=== PATIENT | female | born 1945 | race Caucasian/White ===

== ENCOUNTER 2016-12-25 01:57 | Inpatient (IN) | payer MEDICARE, MEDICAID ==
[~2016-12-25] VITALS: Ht 165.1 cm; Wt 52.9 kg
[2016-12-25] VITALS (16 sets, daily range): BP systolic 73–207; BP diastolic 36–87; PULSE 64–109; RESP 13–22; O2SAT 94–99
[~2016-12-25 01:57] MED LIST: CYAN1TAB42 PO; ESTR0.3T2 PO; FISH OIL PO; FLE10 PO; FOLI1TAB50 PO; FOLIC ACID PO; OMEP20TA86 PO; OXYC5TAB72 PO; RANI150T13 PO; TOPI200T14 PO; TRAZ150T72 PO; VITAMIN D PO; ZLP5T PO
--- NOTE | 2016-12-25 01:59 | ED.REPORT ---
HPI-General Illness Date of Service Dec 25, 2016 ED Provider: Dr. Zoran Tellez M.D. The patient is a 71 year old female not on anticoagulants with a medical history including macrocytic anemia and hypertension recently started on Cartia who presents to the ED via EMS after a syncopal episode just prior to arrival. The patient became dizzy and slid to the ground, then called EMS when she was unable to get back up. She currently reports generalized weakness, recent fluctuating blood pressures, and a red rash to her anterior chest onset a couple of days ago, after starting the Cartia. She denies chest pain, shortness of breath, cough, fever, nausea, vomiting, diaphoresis, abdominal pain, dysuria , diarrhea, constipation, head trauma, injury from the fall, or other symptoms. EMS found the patient with a BP of 70/48, a pulse of 71, a respiration rate of 20, and pulse ox of 95. The patient took an Ambien and used marijuana tonight, prior to her syncopal episode. Nursing Notes Stated Complaint: SYNCOPE Nursing Notes Reviewed: Yes Allergies: Coded Allergies: Penicillins (Verified Allergy, Unknown, HIVES, 12/25/16) Scheduled ([Folic Acid]) 1,600 MG PO DAILY ([Fish Oil]) PO DAILY ([Vitamin D]) PO DAILY Cyanocobalamin/Folic Acid (Vitamin L74-Hrepf Acid Tablet) 1 Each Tablet 1 EACH PO DAILY Estrogens, Conjugated (Premarin) 0.3 Mg Tablet 0.3 MG PO AM Mv,Ca,Min/Iron Fum/FA/Vit K (Multi For Her Tablet) 1 Each Tablet 1 EACH PO DAILY Omeprazole-Expunged Drug, Do Not Renew! (Omeprazole-Expunged Drug, Do Not Renew! ) 20 Mg Tablet.dr 20 MG PO BIDAC Topiramate-Expunged Drug, Do Not Renew! (Topiramate-Expunged Drug, Do Not Renew! ) 200 Mg Tablet 75 MG PO BID Trazodone-Expunged Drug, Do Not Renew! (Trazodone-Expunged Drug, Do Not Renew!) 150 Mg Tablet 75 MG PO HS Zolpidem-Expunged Drug, Do Not Renew! (Zolpidem-Expunged Drug, Do Not Renew!) 5 Mg Tab 5 MG PO HSPMR For Insomnia Scheduled PRN Cyclobenzaprine-Expunged Drug, Do Not Renew! (Flexeril-Expunged Drug, Do Not Renew!) 10 Mg Tablet 10 MG PO PRN PRN PRN Ranitidine HCl (Zantac) 150 Mg Tablet 150 MG PO PRN PRN PRN HEARTBURN oxyCODONE-Expunged, Do Not Renew! (oxyCODONE-Expunged, Do Not Renew!) 5 Mg Tablet 5 MG PO PRN PRN PRN General Time Seen by MD: 01:58 Chief Complaint Other (Syncope) Hx Obtained From: Patient Arrived By: Ambulance Sudden in Onset?: Yes Onset Occurred: Just prior to arrival Symptom Duration: Since onset Severity: Current: No pain currently Severity: Maximum: No pain Pertinent Negative: Relieved by nothing Recent Healthcare: No recent doctor visit Past Medical History Past Medical History 1. 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 B12 and folic acid supplements, which she takes on a daily basis. 2. Hypertension. 3. Chronic lower back pain. Past Surgical History "Lump removed from right thigh" Reports: Cholecystectomy, Hysterectomy Smoking History Unknown if Ever Smoker Social History Drug Use: THC Ambulatory Status Independent Review of Systems + Recent fluctuating blood pressure - Head trauma Full Review of Systems Constitutional: Reports: Weakness - generalized, Denies: Fever Respiratory: Denies: Shortness of breath Cardiovascular: Denies: Chest pain GI: Denies: Abdominal pain, Constipation, Diarrhea, Nausea, Vomiting Female: Denies: Dysuria Skin: Reports Rash (Red, anterior chest), Denies Diaphoresis Neurologic: Reports: Dizziness, Syncope Complete sys rev & neg: except as marked. Physical Exam Vital Signs Vital Signs Date Time Temp Pulse Resp B/P Pulse Ox O2 Delivery O2 Flow Rate FiO2 12/25/16 04:01 69 79/39 12/25/16 03:12 74 104/37 12/25/16 03:02 64 85/49 12/25/16 02:51 71 16 106/61 99 Room Air 12/25/16 02:23 72 13 73/36 99 Room Air 12/25/16 02:00 36.3 77 20 84/52 96 Room Air Initial VS: Reviewed Head / Eyes: Atraumatic, Normocephalic ENT: Conjunctiva normal, No scleral icterus Respiratory: Breath sounds normal, Clear to auscultation, No respiratory distress Abdomen / GI: Soft, Non-tender Extremities: No swelling, No tenderness Neurologic: Alert, Oriented, Nonfocal Psychiatric: Mood/affect normal, Behavior normal, Normal thought content General/Constitutional: Awake, Alert, No acute distress, Well appearing Thin Neck: Supple, Full range of motion, No JVD Cardiovascular: Heart rate NL, Regular rhythm, Heart sounds NL Mild hypotension Not grossly orthostatic on arrival Skin: Warm, Dry Rash / Lesion Notes: Hyperemic erythema to anterior chest Interpretation & Diagnostics Lab Results Interpretation Result Diagram: 12/25/16 0320 12/25/16 0320 Test 12/25/16 03:20 White Blood Count 10.8th/mm3 (3.8-10.1) Red Blood Count 3.67mil/mm3 (3.90-5.20) Hemoglobin 11.6g/dL (12.0-15.6) Hematocrit 34.5% (35.0-46.0) Mean Corpuscular Volume 94.0fL (81-100) Mean Corpuscular Hemoglobin 31.6pg (27.0-35.0) Mean Corpuscular Hemoglobin Concent 33.6% (32.0-37.0) Red Cell Distribution Width 13.5% (12.3-15.4) Platelet Count 242bil/L (150-400) Neutrophils (%) (Auto) 83.2% (40-74) Lymphocytes (%) (Auto) 10.4% (14-46) Monocytes (%) (Auto) 5.6% (4-12) Eosinophils (%) (Auto) 0.5% (0-5) Basophils (%) (Auto) 0.1% (0-3) Prothrombin Time 14.1sec (8.1-12.5) Prothromb Time International Ratio 1.31ratio Activated Partial Thromboplast Time 25.6sec (22.8-33.0) D-Dimer < 0.50mg/L FEU (<0.50) Sodium Level 137mEq/L (134-144) Potassium Level 3.6mEq/L (3.5-5.2) Chloride Level 107mEq/L (97-108) Carbon Dioxide Level 15mmol/L (18-29) Blood Urea Nitrogen 13mg/dL (8-27) Creatinine 1.28mg/dL (0.57-1.00) Estimat Glomerular Filtration Rate 59mL/min (>59) Glucose Level 129mg/dL (60-99) Calcium Level 8.4mg/dL (8.5-10.1) Magnesium Level 1.6mg/dL (1.6-2.6) Total Bilirubin 0.5mg/dL (0.0-1.2) Aspartate Amino Transf (AST/SGOT) 16U/L (0-50) Alanine Aminotransferase (ALT/SGPT) 14U/L (0-32) Alkaline Phosphatase 54U/L (25-165) Troponin T 0.023ug/L (0.0-0.011) Pro-B-Type Natriuretic Peptide 933.8pg/mL (0-301) Total Protein 6.2g/dL (6.4-8.4) Albumin 3.3g/dL (3.4-5.0) Hold Howe Top Tube Received (Received) ECG Interpretation ECG Interpretation: Sinus rhythm rate 76 Time: 02:03 Interpreted by: ED physician X-Ray Chest Interpretation Chest Xray Interpretation: Nothing acute View: AP & lat Interpretation / Wet Read by: Wet read ED physician Re-Eval/Medical Decision Med Decision/Clinical Course 71-year-old presents after dizziness are resulted in a sliding fall to the ground. No injury apparent. She has recently been started on nifedipine but is early on and diltiazem, if her current medical record is cracked. She is clearly not tolerating the nifedipine, with some leg edema, flushing of her skin, and hypotension apparently resulting. She has moderate renal insufficiency of uncertain age and etiology. She has elevated troponin she is to be trended. She is admitted now to the medical service for further evaluation including rule out protocol, gentle hydration, discontinuation of her nifedipine and observation. Consider echocardiography this morning to evaluate for wall motion abnormality, given her troponin abnormality. Source of Hx: Old records Time of Eval: 04:13 Patient Status: Condition improved Re-Evaluation/Progress Note: Discussed with patient lab and x-ray results, diagnosis, and plan for admit. Patient agrees with plan for care and all questions were addressed. Consultation : Referral / Consult Name: Yenni Monroy DO Consulted With: Hospitalist Call Returned at: 04:19 Maintenance Mechanic Technician: Agrees with eval, Agrees with plan, Accepts admit Counseled Regarding: Diagnosis, Lab results, Need for admission Discharge & Departure Primary Impression: Syncope Syncope type: unspecified Qualified Code: R55 - Syncope and collapse Additional Impressions: Hypotension Hypotension type: unspecified hypotension type Qualified Code: I95.9 - Hypotension, unspecified Elevated troponin Disposition: ADMITTED TO HOSPITAL Discharge Condition All VS Reviewed: Yes Condition: Improved Referrals: Mark Sky MD (PCP) Scribe Attestation Portions of this note were transcribed by Rajani Dickey. I, Dr. Tellez, personally performed the history, physical exam, and medical decision-making; I reviewed and confirmed the accuracy of the information in the transcribed note. Signed by: Hari Chacon, 12/25/2016, 04:45 copies to: Mark Sky MD, Christopher W MD Dec 25, 2016 01:59 RAJANI DICKEY Dec 25, 2016 02:07
[2016-12-25] MEDS ORDERED: 0.9% Sodium Chloride 1,000 ML IV ONE ×2 (02:31→04:10)
[2016-12-25 03:27] LABS: BASOPHILS % (AUTO) 0.1 % (0-3); EOSINOPHILS % (AUTO) 0.5 % (0-5); MONOCYTES % (AUTO) 5.6 % (4-12); Mean Corpuscular Hemoglobin 31.6 pg (27.0-35.0); NEUTROPHILS % (AUTO) 83.2 % (40-74); Platelet Count 242 bil/L (150-400)
[2016-12-25 03:51] LABS: D-Dimer < 0.50 mg/L FEU (<0.50); INR 1.31 ratio
[2016-12-25 03:53] LABS: TROPONIN T 0.023 ug/L (0.0-0.011)
[2016-12-25 04:04] LABS: Magnesium 1.6 mg/dL (1.6-2.6)
[2016-12-25] MEDS ORDERED: Lactated Ringer's 1,000 ML IV SCH (05:01)
--- NOTE | 2016-12-25 05:03 | PCM.HPMED ---
Subjective Date of Service Dec 25, 2016 Primary Provider: Admitting Physician: Yenni Monroy DO Primary Care Physician: Mark Sky MD Attending Physician: Yenni Monroy DO Admit Status: From the Emergency Department Chief Complaint: Syncopal event. History of Present Illness: This is a 71-year-old female with past medical history significant for hypertension who presents for syncopal event. The patient is on multiple antihypertensive medications and was recently started on Cartia. She last took her Cartia dose on 12/24/2016 at 4 AM. On the evening of 12/24/2016 she took her lisinopril. She may have also taken atenolol although she cannot remember if she actually took this medication. Before the syncopal event she smoked marijuana and had an Ambien. She states she was walking in her home when she lost consciousness and fell to her knees. She denies any trauma to her head. She states that in the past she has had multiple syncopal events due to his seizure disorder. The seizure disorder has recently been very well controlled on Topamax. Of note, the patient has had intermittent chest pressure over the last week occurring daily and at rest which lasts for a few seconds and then resolves. The chest pressure radiates up her neck to her left ear. The patient also had a rash since starting the Cartia on her anterior chest that is red and improving with loratadine. She states that currently she feels that she is at her baseline without any dizziness, chest pain or pressure, nausea, vomiting, diarrhea, shortness of breath. Initial vitals in the emergency department were temperature 36.3 Celsius, pulse 77, respiratory rate 20, blood pressures 8452, satting at 96% on room air. CBC 10.8, hemoglobin 11.6, hematocrit 34.5, platelet count 242. BUN 13, creatinine 1.28, glucose 129, calcium 8.4 with albumin of 3.3. Troponin 0.023. ProBNP 933.8. PT 14.1, INR 1.31, APTT 25.6, d-dimer less than 0.50. EKG shows normal sinus rhythm with rate of 75. In the emergency department the patient was given 2 boluses of normal saline. Her blood pressure when I was interviewing the patient was 117/60. Review of Systems: A comprehensive review of systems was conducted with the patient and found to be negative except as above in the History of Present Illness. Allergies Coded Allergies: Penicillins (Verified Allergy, Unknown, HIVES, 12/25/16) Home Medications diltiazem CD 120 mg capsule,extended release 24 hr 120 mg take 1 capsule by oral route 2 times every day Fish Oil 1,000 mg Cap 340 mg-1,000 mg hydroxyzine HCl 25 mg tablet 25 mg take 1 tablet by oral route 6 times every day ipratropium bromide 0.06 % nasal spray 42 mcg (0.06 %) spray 2 spray by intranasal route 2 times every day in each nostril lisinopril 10 mg tablet 10 mg take 1 tablet by oral route every day omeprazole 40 mg capsule,delayed release 40 mg take 1 capsule by oral route every day before a meal oxycodone 5 mg tablet 5 mg take 1 q 4-6 hours prn pain . Premarin 0.3 mg tablet 0.3 mg take 1 tablet by oral route every day senna 8.6 mg tablet 8.6 mg take 2 tablet by ORAL route every day as neededfor constipation tizanidine 4 mg capsule 4 mg take 1 capsule by oral route 3 times every day Topamax 50 mg tablet 50 mg TAKE 2 TABLETS IN THE MORNING trazodone 150 mg tablet 150 mg take 1 1/2 tablets in the evening and 1/2 tablet in morning triamcinolone acetonide 0.025 % topical cream 0.025 % apply by topical route 2 times every day a thin layer to the affected area(s) triamcinolone acetonide 0.1 % topical cream 0.1 % apply by topical route 2 times every day a thin layer to the affected area(s) zolpidem 5 mg tablet 5 mg take 1 tablet by oral route every day at bedtime as needed for insomnia PMH GERD Nephrolithiasis Chronic anemia Seizure disorder History of pancreatitis Sleep disorder Hypertension History of SVT Allergic rhinitis Chronic pain with oxycodone use. Surgical History Hysterectomy 1982 Cholecystectomy 2007 Social History Hx Alcohol Use: No (NEVER) Hx Substance Use: Yes (marijuana) Hx Tobacco Use: No Smoking Status: Unknown if Ever Smoker Exam Vital Signs Vital Sign - Last Date Time Temp Pulse Resp B/P Pulse Ox O2 Delivery O2 Flow Rate FiO2 12/25/16 04:48 70 17 117/60 98 Room Air 12/25/16 02:00 36.3 Intake and Output 12/24/16 12/24/16 12/25/16 Cumulative From/Thru 15:00 23:00 07:00 12/25/16 02:00 - 12/25/16 04:02 Intake Total 2000 ml 2000 ml Balance 2000 ml 2000 ml Intake IV Total 2000 ml 2000 ml Exam General: No acute distress, well-developed, well-nourished, appropriately interactive HEENT: Normocephalic, atraumatic. External ears without defect. Pupils equal, round, and reactive to light and accommodation. Anicteric sclerae, moist conjunctivae, and no lid lag. Oropharynx free of erythema and cobble stoning with moist mucosa. Neck: Supple with full range of motion. No jugular venous distension. No bruits. No lymphadenopathy or thyromegaly. Cardiovascular: Regular rate and rhythm with no murmurs, rubs, or gallops appreciated Pulmonary: Clear to auscultation bilaterally with no crackles, wheezes, or rhonchi. JVD present. Normal respiratory effort with no use of accessory muscles. Abdomen: Bowel tones present. Soft, nontender, nondistended. No hepatosplenomegaly or masses appreciated. Extremities: No clubbing, cyanosis, edema, or lymphadenopathy appreciated. Skin: Normal temperature, turgor, and texture; no rash, ulcers, or subcutaneous nodules appreciated. Neurological: Cranial nerves grossly intact. Normal muscle strength, tone, and bulk. Reflexes, coordination, and sensory function within normal limits. No known gait impairment. Psychiatric: Normal mood and affect. Alert and oriented to person, place, and time. Lab and Diagnostics Result Diagram: 12/25/16 0320 12/25/16 0320 Assessment & Plan This is a 71-year-old female with past medical history significant for hypertension and seizure disorder with multiple passing both ends who presents with syncopal episode. The patient recently had their blood pressure medication changed. She was told to stop atenolol and start Cartia. On the morning of 12/24/2016 she had her Cartia dose. She took oxycodone through the day as scheduled. In the evening she took lisinopril, Ambien, smoked marijuana , and possibly took atenolol. She is walking in her home she had a syncopal event where there is no trauma to her head. She has had multiple syncopal events in the past due to his seizure disorder. She states that she is currently well controlled on Topamax. This is likely hypotension due to the addition of Cartia. Differential diagnosis includes arrhythmia, CVA, orthostatic hypotension from hypovolemia, pulmonary embolus (d-dimer <.50).. Syncopal event, present on admission, ongoing: -Patient's blood pressure is currently improving and on admit is 117/60. She is status post 2 normal saline boluses in the ER. - Likely due to new antihypertensive medication, cartia. The patient also has multiple syncopal episodes in the past his seizures. -Patient will be on telemetry -We will order echocardiogram for a.m. -NS at 60 mL per hour. Hypotension, present on admission: -On admit BP is 117/60. -Hold antihypertensive meds Elevated troponin, present on admission, ongoing: -Patient states she has had chest pressure over the last week once a day that lasts several seconds. It occurs at rest and with exertion. The pressure radiates up her left neck to her left ear. -Troponin on admit 0.023. -Trend troponin 3. -Patient on telemetry Elevated proBNP, present on admission, ongoing: -On admit proBNP is 933.8. -Echocardiogram ordered. Hypertension, present on admission, ongoing: -We will hold antihypertensive medications for now. -Patient will need review of medications before discharge to optimize antihypertensive regimen, Chronic anemia, present on admission, stable: -On 10/12/2016 hemoglobin 12.6, hematocrit 30.0. On admit hemoglobin 11.6, hematocrit 34.5. -Continue monitor. Leukocytosis, present on admission, ongoing: -On admit WBC 10.8. Likely due to stress reaction. -Continue to monitor Chronic kidney disease, present on admission, stable: -On 10/12/2016 BUN 15 and creatinine 1.13. On admits BUN 13, creatinine 1.28. -This is not meet acute kidney injury guidelines at this time. -Continue to monitor. Elevated blood glucose, present on admission, ongoing: -Admit glucose 129. -A1c ordered. Seizure disorder, present on admission, stable: -Continue on Topamax. Chronic musculoskeletal pain, present on admission, stable: -Continue on home chronic pain medications. Med rec is not yet complete. Day team will need to complete med rec DVT prophylaxis with heparin. Patient is admitted under observation status with expected length of stay less than 2 midnights due to severity of presenting symptoms, risk of adverse event, and complexity of treatment plan. Pain Evaluation: Adequate Pain Control Resuscitation Status: CPR: Attempt Resuscitation Attending Statement The patient was seen and examined together with house staff on 12/25/2016 and I agree with the history, exam and plan as outlined in the note above. Zoran Isaac DO Dec 25, 2016 05:03 Yenni Monroy DO Dec 25, 2016 06:44
[2016-12-25] MEDS ORDERED: Ondansetron 2 mg/mL 2 mL Inj IVPUSH PRN ×2 (05:05→05:35)
[2016-12-25] MEDS ORDERED: Alum-Mag Hydrox-Simeth 30 mL Suspension PO PRN ×2 (05:05→05:35)
[2016-12-25] MEDS ORDERED: 0.9% Sodium Chloride 1,000 ML IV SCH (05:30)
[2016-12-25] MEDS ORDERED: Polyethylene Glycol (PEG) 17 Gm Powder PO PRN (05:35)
--- NOTE | 2016-12-25 06:06 | NUR ---
ADMIT TO [facility] [place] Patient arrived to floor approx 0600 from ED. dx: syncope. patient is a/o x 3, pleasant and cooperative. SBA transfers/mobility; denies dizziness at this time. per ED report she came in hypotensive: (73/36) b/p now is 121/70. pulse 75. patient requesting oxycodone 10mg which she states "I take that every morning before I get up." Page w/ this info sent to , awaiting response. oriented to room, call light. Bed alarm in place, call light w/in reach. Addendum: 12/25/16 at 0654 by LORI JAMES RN new order for oxycodone 5mg po [id number] prn. 1 tab given for c/o 6/10 back pain. IVF started: NS at 60/hour. General diet. TELE NSR 77. patient is sitting up in bed, watching tv, denies further syncope. She voiced concern re: her cat at home left unattended, as well as her cell phone. Call placed to her daughter, message left w/ her room/phone number. CTM for changes.
[2016-12-25] MEDS ORDERED: OXYC5TAB72 PO (07:44)
[2016-12-25] MEDS ORDERED: HYDR-656 PO (07:44)
[2016-12-25] MEDS ORDERED: CHOL400T PO (07:44)
[2016-12-25] MEDS ORDERED: TOPI50TA32 PO (07:44)
[2016-12-25] MEDS ORDERED: FOLI0.8C PO (07:44)
[2016-12-25] MEDS ORDERED: LISI-571 PO (07:44)
[2016-12-25] MEDS ORDERED: FLAX1CAP6 PO (07:44)
[2016-12-25] MEDS ORDERED: TRAZ150T72 PO ×2 (07:44)
[2016-12-25] MEDS ORDERED: DILT120C52 PO (07:44)
[2016-12-25] MEDS ORDERED: ZOLP5TAB6 PO (07:44)
[2016-12-25] MEDS ORDERED: DOCO1CAP3 PO (07:44)
[2016-12-25] MEDS ORDERED: IPRA15SP NASAL (07:44)
[2016-12-25] MEDS ORDERED: TIZA4TAB4 PO (07:44)
[2016-12-25] MEDS ORDERED: SENN-133 PO (07:46)
--- NOTE | 2016-12-25 07:51 | DRSVH ---
PROCEDURE: X-RAY CHEST, TWO VIEWS ([id number]) INDICATIONS: syncope TECHNIQUE: 2 views of the chest were acquired. COMPARISON: [facility], CR, CHEST 2VW, 09/15/2015, 14:38. FINDINGS: Surgical changes and devices: residence life director leads are seen over the chest. Lungs and pleura: No pleural effusions or pneumothorax. Lungs are clear. Mediastinum: Mediastinal contours are normal. Heart size is normal. Bones and chest wall: No suspicious bony abnormalities. Soft tissues appear unremarkable. IMPRESSION: No acute or active disease is found in the two-view chest. Dictated by: Jessee Newell M.D. on 12/25/2016 at 7:48 Approved by: Jessee Newell M.D. on 12/25/2016 at 7:49
[2016-12-25] MEDS: Heparin 5,000 Unit/mL Inj SUBQ SCH ×2 (08:08→15:52)
--- NOTE | 2016-12-25 13:45 | NUR ---
ZAHIRA explained and signed, copy of ZAHIRA and Medicare self administered medication information given to pt.
--- NOTE | 2016-12-25 14:13 | DRSVH ---
PROCEDURE: US BILATERAL DUPLEX DOPPLER IMAGING OF THE CAROTIDS ([id number]) INDICATIONS: syncope TECHNIQUE: Color and pulse Doppler interrogation was performed of both carotid systems, with image documentation and velocity measurements. COMPARISON: None. FINDINGS: All stenosis calculations are based on NASCET criteria. Right side: Brachial blood pressure: 143/68 mm Hg. Common carotid artery peak systolic velocity: 81 cm/sec. Internal carotid artery peak systolic velocity: 152 cm/sec. Internal carotid artery end diastolic velocity: 34 cm/sec. External carotid artery peak systolic velocity: 131 cm/sec. ICA/CCA peak systolic ratio: 1.9. Lizama scale imaging description: Atherosclerotic calcific plaque is present Percent internal carotid artery stenosis: The there is 50-69% diameter stenosis at the low in the ran ge at the origin of the right internal carotid artery. Vertebral artery: Flow direction is antegrade. Left side: Brachial blood pressure: Not obtained because of IV in the left arm Common carotid artery peak systolic velocity: 101 cm/sec. Internal carotid artery peak systolic velocity: 122 cm/sec. Internal carotid artery end diastolic velocity: 30 cm/sec. External carotid artery peak systolic velocity: 111 cm/sec. ICA/CCA peak systolic ratio: 1.2. Lizama scale imaging description: Atherosclerotic plaquing is present. Percent internal carotid artery stenosis: Less than 50% diameter stenosis.. Vertebral artery: Flow direction is antegrade. * . IMPRESSION: There is 50-69% diameter stenosis at the origin of the right internal carotid artery prob ably at the lower end of the right. There is less than 50% diameter stenosis at the origin of the lef t internal carotid artery. Dictated by: Jessee Newell M.D. on 12/25/2016 at 14:08 Approved by: Jessee Newell M.D. on 12/25/2016 at 14:11
[2016-12-25] MEDS ORDERED: Potassium Chloride 20 mEq SR Tablet PO ONE (15:05)
[2016-12-25] MEDS: hydrOXYzine Pamoate 25 mg Capsule PO PRN (17:32)
--- NOTE | 2016-12-25 17:51 | NUR ---
BP/HR Pt noted with high BP & HR around 130 while crying d/t having a EPSTEIN and stated "I had a rough life" BP rechecked x3, SBP continues to be in 200s. notified. JAMES Dove given. BRITTANI comforting pt. waiting on new Rx orders. Addendum: 12/25/16 at 1836 by AMANDA ORDOÑEZ RN No new orders recd from yet, >60 min since PO Derrell and Regina, Pts BP now 170/78, HR 87. Pt states "I feel ok now" Will continue to monitor.
[2016-12-25] MEDS ORDERED: Labetalol 5 mg/mL 4 mL Inj IVPUSH PRN ×2 (18:45)
[2016-12-25 19:38] LABS: APPEARANCE,URINE HAZY (CLEAR,HAZY); COLOR,URINE YELLOW (YELLOW); OCCULT BLOOD,URINE NEGATIVE (NEGATIVE); UROBILINOGEN,URINE NORMAL (NORMAL)
[2016-12-25] MEDS ORDERED: TRAZODONE PO SCH (21:00)
[2016-12-25] MEDS: TRAZODONE PO SCH ×2 (21:25)
[2016-12-26] VITALS (13 sets, daily range): BP systolic 114–198; BP diastolic 64–99; PULSE 80–100; RESP 16–18; O2SAT 94–98
[2016-12-26] MEDS: Heparin 5,000 Unit/mL Inj SUBQ SCH ×3 (00:51→17:15)
--- NOTE | 2016-12-26 06:21 | NUR ---
NOC Activity pt reports of headache and back pain that is 8/10. Oxycodone PRN administered. Denies chest pain, sob, n/v or abd discomfort. Trazodone and ambien administered to aid in sleep. Pt blood pressure runing 200 down to 180's. Labetalol administered PRN. Pt's BP went down to SBP of 160's and HR 80's. Intentional hourly rounding done, and has been afebrile throughout the night.
[2016-12-26 06:47] LABS: BASOPHILS % (AUTO) 0.2 % (0-3); MONOCYTES % (AUTO) 6.7 % (4-12); Mean Corpuscular Hemoglobin 31.9 pg (27.0-35.0); Mean Corpuscular Volume 93.8 fL (81-100); NEUTROPHILS % (AUTO) 57.2 % (40-74); Platelet Count 230 bil/L (150-400)
[2016-12-26 07:21] LABS: Magnesium 1.6 mg/dL (1.6-2.6)
[2016-12-26] MEDS: Estrogens Conjugated 0.3 mg Tablet PO SCH (09:17)
[2016-12-26] MEDS: Ipratropium 0.03% 30 mL Nasal Spray Bottle NASAL SCH (09:17)
[2016-12-26] MEDS: hydrOXYzine Pamoate 25 mg Capsule PO PRN ×2 (09:19→14:49)
[2016-12-26] MEDS: Pantoprazole 40 mg ER24 Tablet PO SCH (11:01)
[2016-12-26] MEDS: Diltiazem CD 120 mg ER24 Capsule PO SCH ×2 (12:38→18:36)
--- NOTE | 2016-12-26 12:42 | PCM.PNMED ---
Subjective Date of Service Dec 26, 2016 Subjective Denies any new issues/complaints. Exam Vital Signs Vital Sign - Last Date Time Temp Pulse Resp B/P Pulse Ox O2 Delivery O2 Flow Rate FiO2 12/26/16 12:19 36.8 99 18 198/95 95 Room Air Intake and Output 12/25/16 12/25/16 12/26/16 Cumulative From/Thru 15:00 23:00 07:00 12/25/16 02:00 - 12/26/16 06:08 Intake Total 1957 ml 420 ml 4377 ml Output Total 1050 ml 1300 ml 3125 ml Balance 907 ml -880 ml 1252 ml Intake Oral 1276 ml 400 ml 1676 ml IV Total 681 ml 20 ml 2701 ml Output Urine Total 1050 ml 1300 ml 3125 ml General: Alert, Oriented X3, Cooperative, No Acute Distress Head: Normal Eyes: Scleral Anicteric Nose: Mucous Membr Moist/[place] Mouth: Mucous Membr Moist/[place] Neck: Supple Chest & Lungs: Chest Wall Normal, Clear to auscultation & percussion Cardiovascular: Regular Rate/Rhythm Pulses: NL carotid, radial, femoral, DP, PT Abdomen: Non-tender, Non-distended, Normoactive bowel tones, Soft Extremities: No cyanosis/clubbing/edma bilat Neurological: Grossly Neurologically Intact, Normal Speech IVs and Medications Medications Reviewed: Medications were reviewed in detail Lab and Diagnostics Result Diagram: 12/26/1661412/26/16614 Assessment & Plan 71-year-old female with past medical history significant for hypertension and seizure disorder who presents with syncopal episode. The patient recently had their blood pressure medication changed. She was told to stop atenolol and start Cartia. # Acute syncope, prior to admission. Workup ongoing - Suspect likely due to combination of hypotension from new BP meds as well as Ambien and Marijuana use. - Followup pending echo - Followup pending carotid U/S # Hypotension, present on admission. - Hypotension resolved and now with very labile blood pressures with periods of hypertension and SBP up to 200's - Resume home dose Lisinopril and Cartia - IV Labetalol prn # Elevated troponin, present on admission - Troponin on admit 0.023 but repeat Trop all negative - Denies any CP - Followup pending Echo # Chronic anemia, present on admission, stable: - Continue monitor. # Mild acute leukocytosis, present on admission. Resolved - Likely due to stress reaction. # Acute kidney injury on possible chronic kidney disease, present on admission - Resolved - Continue to monitor. # Elevated blood glucose, present on admission, ongoing: - Followup HgA1C # History of seizure disorder, stable: - Continue on Topamax. # Chronic musculoskeletal pain, present on admission, stable: - Continue on home chronic pain medications. Dispo: 1-2 days pending echo result and table BP VTE Mechanical Devices: Venous Foot Pump Resuscitation Status: CPR: Attempt Resuscitation Clement Cosby Dec 26, 2016 12:42 Patient is admitted under observation status with expected length of stay less than 2 midnights due to severity of presenting symptoms, risk of adverse event, and complexity of treatment plan. VTE Mechanical Devices: Venous Foot Pump Resuscitation Status: CPR: Attempt Resuscitation Clement Cosby Dec 26, 2016 12:42 -Continue on Topamax. Chronic musculoskeletal pain, present on admission, stable: -Continue on home chronic pain medications. Med rec is not yet complete. Day team will need to complete med rec DVT prophylaxis with heparin. Patient is admitted under observation status with expected length of stay less than 2 midnights due to severity of presenting symptoms, risk of adverse event, and complexity of treatment plan. VTE Mechanical Devices: Venous Foot Pump Resuscitation Status: CPR: Attempt Resuscitation Clement Cosby Dec 26, 2016 12:42
--- NOTE | 2016-12-26 16:41 | DRSVH ---
[facility] [address] [place] [address] Echocardiogram Report Name: MONET KITCHEN DStudy Date: Height: 65 in Hospital Exam Location: [facility] Weight: 123 lb Gender: Female BSA: 1.6 m2 : 1945 Age: 71 yrs BP: 121/70 mmHg Reason For Study: SYNCOPAL EVENT Ordering Physician: HOSPITALIST [facility] Performed By: Kirill Beck Referring Physician: Anita MARTIN Interpretation Summary The left ventricle is normal in size, wall thickness, and systolic function without any focal wall motion abnormalities. The ejection fraction is estimated to be 60-65%. The right ventricle is normal in size and function. The right ventricular systolic pressure is estimated at 37 mmHg assuming a right atrial pressure of 3 mm Hg. The right atrium is mildly dilated. The left atrium is borderline dilated. There is mild to moderate mitral regurgitation. There is mild aortic regurgitation. There is no other significant valvular heart disease. The aortic root is normal size. Mild atherosclerotic plaque(s) in the descending aorta. No significant changes since 03/06/2015. Procedure: A two-dimensional transthoracic echocardiogram with color flow and Doppler was performed. The study quality was technically good. Comparison is made with the echocardiogram of 03/06/15. The patient was in normal sinus rhythm during the exam. The patient had occasional PACs during the exam. Left Ventricle: The left ventricle is normal in size, wall thickness, and systolic function without any focal wall motion abnormalities. The ejection fraction is estimated to be 60-65%. Right Ventricle: The right ventricle is normal in size and function. Atria: The left atrium is borderline dilated. The right atrium is mildly dilated. The interatrial septum is intact with no evidence for an atrial septal defect. Mitral Valve: The mitral valve leaflets appear borderline thickened, but open well. There is mild to moderate mitral regurgitation. Aortic Valve: The aortic valve is trileaflet. The aortic valve opens well. There is mild aortic regurgitation. Tricuspid Valve: The tricuspid valve is normal in structure and function. There is mild tricuspid regurgitation. The right ventricular systolic pressure is estimated at 37 mmHg assuming a right atrial pressure of 3 mm Hg. Pulmonic Valve: The pulmonic valve is normal in structure and function. There is trace pulmonic regurgitation. There is no other significant valvular heart disease. Great Vessels: The aortic root is normal size. The dimensions of the ascending aorta are normal. Mild atherosclerotic plaque(s) in the descending aorta. The pulmonary artery is normal size. The IVC is of normal diameter and collapses greater than 50% with a sniff. This suggests a low right atrial pressure of 3 mm Hg. Pericardium/ Pleura There is no pericardial effusion. There is no pleural effusion. MMode/2D Measurements & Calculations LVIDd: 4.4 cm RA long axis asc Aorta LVIDs: 3.2 cm LA A2 area: 17.5 cm Diam: 3.1 cm FS: 26.9 % LA A4 area: 18.4 cm RA area IVSd: 0.69 cm LA length (vol): 5.5 cm LVPWd: 0.83 cm LA vol: 49.4 ml : 19.6 cm LA vol index RA vol: 60.3 ml RA : 37.5 mm2 IVC diam: 1.2 cm LV dubose. diameter/BSA LV sys. diameter/BSA (cm/m^2): 2.7 (cm/m^2): 2.0 Doppler Measurements & Calculations Ao V2 max MV E max raz MV E/A: 1.6 TR max raz : 107.0 cm/sec : 97.6 cm/sec MV A dur: 0.11 sec : 291.7 cm/sec Ao max P.6 mmHg MV A max raz TR max PG Ao mean P.7 mmH.2 cm/sec : 34.0 mmHg AI P1/2t: 401.6 msec PA V2 max AI dec slope : 91.9 cm/sec PA mean PG : 321.6 cm/s2c PA Accel Time : 0.08 sec MV dec time Ao V2 mean MR flow rate PA V2 mean : 0.15 sec : 78.9 cm/sec : 72.9 cm/sec Ao V2 VTI: 21.2 cm : 57.2 cm3/sec PA pr(Accel) MR PISA radius : 43.0 mmHg Reading Physician:MILAGRO
--- NOTE | 2016-12-26 17:17 | NUR ---
Inpatient status effective today, ZA signed.
--- NOTE | 2016-12-26 17:28 | NUR ---
Social Work: Initial Assessment D: EMR reviewed. Pt is a 71 y/o female admitted for syncope, hypotension, elevated troponin per H&P. SW met with pt and at bedside to conduct initial assessment. Pt was alert and oriented x3. SW explained role and wrote phone number on white board in pt's room. SW confirmed pt has not completed DPOA/advanced directive ppw and declined any ppw at this time. Pt's primary contact is daughter/[employer]BR[employer] caregiver Myra Sky ([phone]) who pt gave verbal consent to contact for discharge planning. Pt's insurance is Medicare and [employer]. Pt's PCP is Mark Sky MD. Pt has no hx of HH or a SNF. Pt does not have LTC or VA benefits. Pt needs assistance with most ADLs including bathing, feeding, meal preparation, transportation, and housekeeping. Pt's lives with the daughter who provides 24/7 care and is her [employer]BR[employer] caregiver. Pt receives 61 hours of AMBROSE per month and pt's CM is Aida Joseph ([phone]). Pt owns and uses a [employer] at baseline but no other DME. Pt does not drive. Pt contacted daughter while SW was in room and confirmed that daughter will provide pt transport home when pt is medically stable. Pt lives in a split level home with a level entrance and 13 steps to the downstairs area. Pt does not have to use stairs as the main living area is level. Pt's daughter will provide transport home via POV when pt is medically stable. SW does not anticipate any discharge needs at this time but will continue to follow if needs arise. A: Pt who has 24/7 in-home care and AMBR[employer] at baseline. P: Pt's daughter will provide transport home via POV when pt is medically stable. SW does not anticipate any discharge needs at this time but will continue to follow if needs arise. MENDEZ Melo Addendum: 12/26/16 at 1736 by PRIMITIVO CARDENAS Amended: Links added.
--- NOTE | 2016-12-26 18:23 | NUR ---
VS Pts HR continuous to be around 90 to 1 teens and hypertensive. PRN pain meds given for chronic back pain and PRN anxiety meds. Pt asymptomatic during high numbers. MD aware. ECHO completed at bedside. No emotional episodes noted on shift today. Will continue to monitor.
[2016-12-26] MEDS: TRAZODONE PO SCH ×2 (21:36)
[2016-12-27] MEDS: Heparin 5,000 Unit/mL Inj SUBQ SCH ×2 (00:01→07:49)
[2016-12-27 01:32] VITALS: BP 108/65; PULSE 72; RESP 16; O2SAT 92
[2016-12-27 04:09] VITALS: BP 104/63; PULSE 83; RESP 17; O2SAT 98
--- NOTE | 2016-12-27 04:57 | NUR ---
Pain/BP Pt. c/o 01/24 general/back pain, given 1 dose of prn oxycodone with effective result, on q2 BP monitoring, SBP has been in 100-115's and DBP 60-70s most of the shift, denies chest pain, pt. slept well most of the night, call light in reach, will continue to monitor.
[2016-12-27 06:24] VITALS: BP 123/68; PULSE 81; RESP 18; O2SAT 94
[2016-12-27] MEDS: Pantoprazole 40 mg ER24 Tablet PO SCH (07:49)
[2016-12-27] MEDS: hydrOXYzine Pamoate 25 mg Capsule PO PRN (07:50)
[2016-12-27] MEDS: Estrogens Conjugated 0.3 mg Tablet PO SCH (07:50)
[2016-12-27] MEDS: Diltiazem CD 120 mg ER24 Capsule PO SCH (07:50)
[2016-12-27] MEDS: Ipratropium 0.03% 30 mL Nasal Spray Bottle NASAL SCH (07:56)
--- NOTE | 2016-12-27 08:12 | PCM.DIMED ---
Discharge Instructions Date of Service Dec 27, 2016 Dates of Hospitalization Dec 25, 2016 at 04:31 Discharge Diagnosis Discharge Diagnosis # Acute syncope, prior to admission. - Suspect likely due to combination of hypotension from new blood pressure medications as well as Ambien and Marijuana use. # "50-69% diameter stenosis at the origin of the right internal carotid artery probably at the lower end of the right" noted on the carotid ultra sound from 05/03. - Will need to followup with primary care provider as outpatient. # Hypotension, present on admission. Resolved # Chronic hypertension with very labile blood pressures during this hospitalization, now stabilized. # Chronic anemia, present on admission, stable: # Mild acute leukocytosis, present on admission. Resolved - Likely due to stress reaction. # Acute kidney injury on possible chronic kidney disease, present on admission. Resolved. # Elevated blood glucose, present on admission, likely reactive to stress. - Followup pending HgA1C level with primary care provider # History of seizure disorder, stable: # Chronic musculoskeletal pain, present on admission, stable Diet Discharge Diet: Low fat, Low Sodium, Heart Healthy Activity Discharge Activity: No restrictions Call your provider Call your provider for: Fever or Chills, Shortness of breath, Bleeding, Chest pain, Vomitting Patient Instructions Patient Instructions Seek immediate medical attention if any new or worsening signs or symptoms occur. Follow-up plan 1. Followup with primary care provider (Dr. Sky) and your news content specialist (Dr. Bass) in 1-2 weeks for further followup and management of your blood pressure and to address the noted right carotid artery stenosis. Follow-up Provider: Mark Sky MD Provider: Shawn Bass MD, [place] Dec 27, 2016 08:12
--- NOTE | 2016-12-27 09:49 | NUR ---
discharge paperwork reviewed, all questions answered. pt denies CP/pain/distress at this time. Pt will be taken home via private car by her daughter. pt will be transported to the private vehicle via W/C by WATERPROOFING MACHINE OPERATOR.
--- NOTE | 2016-12-27 10:14 | NUR ---
Social Work-discharge: Data:EMR Reviewed. Pt is on day 2 of hospitalization for syncope per H&P. Pt is medically stable for discharge. Pt resides at home with her daughter who provides 07/02 care. Pt's CM is Aida Joseph, updated discharge information faxed. Pt's daughter to provide transport home today. No discharge needs identified. All updated and agreeable to plan. Assessment:Pt who has AMBROSE. Plan:Pt to discharge home today via POV. Pt to continue with AMBROSE. No discharge needs identified. All updated and agreeable to plan. MENDEZ Black
--- NOTE | 2016-12-27 11:08 | PCM.DC.MED ---
Discharge Summary Date of Service Dec 27, 2016 Dates of Hospitalization Date of Hospital Admission Dec 25, 2016 at 04:31 Date of Discharge: Dec 27, 2016 Providers: Admitting Physician: Yenni oMnroy DO Primary Care Physician: Mark Sky MD Attending Physician: Yenni Monroy DO Diagnosis at Time of Discharge Diagnosis at Time of Discharge # Acute syncope, prior to admission. - Suspect likely due to combination of hypotension from new blood pressure medications as well as Ambien and Marijuana use. # "50-69% diameter stenosis at the origin of the right internal carotid artery probably at the lower end of the right" noted on the carotid ultra sound from 05/03. - Will need to followup with primary care provider as outpatient. # Hypotension, present on admission. Resolved # Chronic hypertension with very labile blood pressures during this hospitalization, now stabilized. # Chronic anemia, present on admission, stable: # Mild acute leukocytosis, present on admission. Resolved - Likely due to stress reaction. # Acute kidney injury on possible chronic kidney disease, present on admission. Resolved. # Elevated blood glucose, present on admission, likely reactive to stress. - Followup pending HgA1C level with primary care provider # History of seizure disorder, stable: # Chronic musculoskeletal pain, present on admission, stable Procedures XRay, CTs & MRIs Date of Service: 12/25/16 0231 PROCEDURE: X-RAY CHEST, TWO VIEWS ([id number]) IMPRESSION: No acute or active disease is found in the two-view chest. Dictated by: Jessee Newell M.D. on 12/25/2016 at 7:48 Approved by: Jessee Newell M.D. on 12/25/2016 at 7:49 Cardiac Echo Impression Date of Service: 12/26/16 0515 Echocardiogram Report Interpretation Summary The left ventricle is normal in size, wall thickness, and systolic function without any focal wall motion abnormalities. The ejection fraction is estimated to be 60-65%. The right ventricle is normal in size and function. The right ventricular systolic pressure is estimated at 37 mmHg assuming a right atrial pressure of 3 mm Hg. The right atrium is mildly dilated. The left atrium is borderline dilated. There is mild to moderate mitral regurgitation. There is mild aortic regurgitation. There is no other significant valvular heart disease. The aortic root is normal size. Mild atherosclerotic plaque(s) in the descending aorta. No significant changes since 03/06/2015. Reading Physician:PM Other Diagnostics Date of Service: 12/25/16 1013 PROCEDURE: US BILATERAL DUPLEX DOPPLER IMAGING OF THE CAROTIDS ([id number]) IMPRESSION: There is 50-69% diameter stenosis at the origin of the right internal carotid artery probably at the lower end of the right. There is less than 50% diameter stenosis at the origin of the left internal carotid artery. Dictated by: Jessee Newell M.D. on 12/25/2016 at 14:08 Approved by: Jessee Newell M.D. on 12/25/2016 at 14:11 Brief History As noted in H&P by Dr. Isaac: This is a 71-year-old female with past medical history significant for hypertension who presents for syncopal event. The patient is on multiple antihypertensive medications and was recently started on Cartia. She last took her Cartia dose on 12/24/2016 at 4 AM. On the evening of 12/24/2016 she took her lisinopril. She may have also taken atenolol although she cannot remember if she actually took this medication. Before the syncopal event she smoked marijuana and had an Ambien. She states she was walking in her home when she lost consciousness and fell to her knees. She denies any trauma to her head. She states that in the past she has had multiple syncopal events due to his seizure disorder. The seizure disorder has recently been very well controlled on Topamax. Of note, the patient has had intermittent chest pressure over the last week occurring daily and at rest which lasts for a few seconds and then resolves. The chest pressure radiates up her neck to her left ear. The patient also had a rash since starting the Cartia on her anterior chest that is red and improving with loratadine. She states that currently she feels that she is at her baseline without any dizziness, chest pain or pressure, nausea, vomiting, diarrhea, shortness of breath. Initial vitals in the emergency department were temperature 36.3 Celsius, pulse 77, respiratory rate 20, blood pressures 8452, satting at 96% on room air. CBC 10.8, hemoglobin 11.6, hematocrit 34.5, platelet count 242. BUN 13, creatinine 1.28, glucose 129, calcium 8.4 with albumin of 3.3. Troponin 0.023. ProBNP 933.8. PT 14.1, INR 1.31, APTT 25.6, d-dimer less than 0.50. EKG shows normal sinus rhythm with rate of 75. In the emergency department the patient was given 2 boluses of normal saline. Her blood pressure when I was interviewing the patient was 117/60. Hospital Course # Acute syncope, prior to admission. Workup ongoing - Suspect likely due to combination of hypotension from new BP meds as well as Ambien and Marijuana use. - Echo and carotid U/S results as noted above - Remained asymptomatic during this hospital # "50-69% diameter stenosis at the origin of the right internal carotid artery probably at the lower end of the right" noted on the carotid ultra sound from 05/03. - Will need to followup with primary care provider as outpatient. # Hypotension, present on admission. - Hypotension resolved and subsequently was having very labile blood pressures with periods of hypertension and SBP up to 200's - Resumed home dose Lisinopril and Cartia and by day of discharge BP is well controlled # Elevated troponin, present on admission - Troponin on admit 0.023 but repeat Trop all negative - Denies any CP - Echo as noted above # Chronic anemia, present on admission, stable # Mild acute leukocytosis, present on admission. Resolved - Likely due to stress reaction. # Acute kidney injury on possible chronic kidney disease, present on admission - Resolved # Elevated blood glucose, present on admission - Followup pending HgA1C by PCP as outpatient # History of seizure disorder, stable - Continue on Topamax. # Chronic musculoskeletal pain, present on admission, stable - Continue on home chronic pain medications. Exam Vital Signs (Last) Date Time Temp Pulse Resp B/P Pulse Ox O2 Delivery O2 Flow Rate FiO2 12/27/16 06:24 37.1 81 18 123/68 94 Room Air Exam General: Alert, Oriented X3, Cooperative, No Acute Distress Head: Normal Eyes: Scleral Anicteric Nose: Mucous Membr Moist/[place] Mouth: Mucous Membr Moist/[place] Neck: Supple Chest & Lungs: Chest Wall Normal, Clear to auscultation bilat Cardiovascular: Regular Rate/Rhythm Pulses: NL carotid, radial, femoral, DP, PT Abdomen: Non-tender, Non-distended, Normoactive bowel tones, Soft Extremities: No cyanosis/clubbing/edma bilat Neurological: Grossly Neurologically Intact, Normal Speech Test 12/25/16 03:20 12/25/16 08:10 12/25/16 16:06 12/26/16 06:15 Prothrombin Time 14.1sec (8.1-12.5) Prothromb Time International Ratio 1.31ratio Activated Partial Thromboplast Time 25.6sec (22.8-33.0) D-Dimer < 0.50mg/L FEU (<0.50) Total Bilirubin 0.5mg/dL (0.0-1.2) Aspartate Amino Transf (AST/SGOT) 16U/L (0-50) Alanine Aminotransferase (ALT/SGPT) 14U/L (0-32) Alkaline Phosphatase 54U/L (25-165) Pro-B-Type Natriuretic Peptide 933.8pg/mL (0-301) Total Protein 6.2g/dL (6.4-8.4) Albumin 3.3g/dL (3.4-5.0) Hold [place] Top Tube Received (Received) Urine Color Yellow (YELLOW) Urine Appearance Hazy (CLEAR,HAZY) Urine pH 6.0 (5.0-8.0) Urine Specific [place] <1.005 (1.003-1.035) Urine Protein Negativemg/dL (NEG,TRACE) Urine Glucose (UA) Negativemg/dL (NEGATIVE) Urine Ketones Negativemg/dL (NEGATIVE) Urine Occult Blood Negative (NEGATIVE) Urine Nitrite Negative (NEGATIVE) Urine Bilirubin Negative (NEGATIVE) Urine Urobilinogen Normalmg/dL (NORMAL) Urine Leukocyte Esterase Small (NEGATIVE) Urine RBC 0-2/hpf (0-2) Urine WBC 0-5/hpf (0-5) Urine Epithelial Cells Occasional/hpf (NONE-MOD) Urine Crystals None seen (NONE SEEN) Urine Bacteria Many/hpf (NONE-FEW) Urine Hyaline Casts None/lpf (NONE) Urine Granular Casts None seen (NONE SEEN) Urine Waxy Casts None seen (NONE SEEN) Urine Red Blood Cell Casts None seen (NONE SEEN) Urine White Blood Cell Casts None seen (NONE SEEN) Urine Mucus None seen (None Seen) Urine Trichomonas None seen (NONE SEEN) Urine Yeast None (NONE SEEN) Urinalysis Comment None Urine Culture Reflexed Indicated Hold Urine Received (Received) Troponin T < 0.010ug/L (0.0-0.011) White Blood Count 6.5th/mm3 (3.8-10.1) Red Blood Count 3.54mil/mm3 (3.90-5.20) Hemoglobin 11.3g/dL (12.0-15.6) Hematocrit 33.2% (35.0-46.0) Mean Corpuscular Volume 93.8fL (81-100) Mean Corpuscular Hemoglobin 31.9pg (27.0-35.0) Mean Corpuscular Hemoglobin Concent 34.0% (32.0-37.0) Red Cell Distribution Width 13.8% (12.3-15.4) Platelet Count 230bil/L (150-400) Neutrophils (%) (Auto) 57.2% (40-74) Lymphocytes (%) (Auto) 33.6% (14-46) Monocytes (%) (Auto) 6.7% (4-12) Eosinophils (%) (Auto) 2.0% (0-5) Basophils (%) (Auto) 0.2% (0-3) Sodium Level 138mEq/L (134-144) Potassium Level 3.8mEq/L (3.5-5.2) Chloride Level 110mEq/L (97-108) Carbon Dioxide Level 16mmol/L (18-29) Blood Urea Nitrogen 8mg/dL (8-27) Creatinine 0.96mg/dL (0.57-1.00) Estimat Glomerular Filtration Rate 82mL/min (>59) Glucose Level 111mg/dL (60-99) Calcium Level 8.7mg/dL (8.5-10.1) Magnesium Level 1.6mg/dL (1.6-2.6) Discharge Medications Discharge Medications Cholecalciferol (Vitamin D3) (Vitamin D3) 400 Unit Tablet 400 UNIT PO DAILY ( Reported) Cyanocobalamin/Folic Acid (Vitamin O77-[place] Acid Tablet) 1 Each Tablet 1 EACH PO DAILY (Reported) Diltiazem ER (Cartia XT) 120 Mg Cap.er.24h 120 MG PO BID (Reported) Docosahexanoic Acid/Epa (Fish Oil Concentrate Softgel) 1 Each Capsule 1 CAPSULE PO DAILY (Reported) Estrogens, Conjugated (Premarin) 0.3 Mg Tablet 0.3 MG PO AM (Reported) Flaxseed Oil/[place] 3,6,9 (Sv Flaxseed Oil 1,300 mg Sftgl) 1 Each Capsule 1 CAPSULE PO DAILY (Reported) Folic Acid (Folic Acid) 0.8 Mg Capsule 1.6 MG PO DAILY (Reported) Ipratropium [place] (Ipratropium [place] 0.06% Nasal) 15 Ml [place] 1 SPRAY NASAL DAILY (Reported) Lisinopril (Lisinopril) 5 Mg Tablet 5 MG PO DAILY (Reported) Mv,Ca,Min/Iron Fum/FA/Vit K (Multi For Her Tablet) 1 Each Tablet 1 EACH PO DAILY (Reported) Topiramate (Topamax) 50 Mg Tablet 50 MG PO BID (Reported) Trazodone (Trazodone) 150 Mg Tablet 225 MG PO HS (Reported) Trazodone (Trazodone) 150 Mg Tablet 75 MG PO DAILYWM (Reported) As needed Sennosides (Senna) 8.6 Mg Tablet 8.6 MG PO DAILY PRN PRN For Constipation ( Reported) Tizanidine (Tizanidine) 4 Mg Tablet 4 MG PO TID PRN PRN For Pain (Reported) Zolpidem (Zolpidem) 5 Mg Tablet 5 MG PO HS PRN PRN Insomnia (Reported) hydrOXYzine Hcl (HydrOXYzine Hcl) 25 Mg Tablet 25 MG PO TID PRN PRN For Anxiety (Reported) oxyCODONE (oxyCODONE) 5 Mg Tablet 10 MG PO TID PRN PRN For Pain (Reported) Followup Plan Disposition: Home Follow-up plan 1. Followup with primary care provider (Dr. 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 Bass) in 1-2 weeks for further followup and management of your blood pressure and to address the noted right carotid artery stenosis. Discharge Diet: Low fat, Low Sodium, Heart Healthy Discharge Activity: No restrictions Patient Instructions Seek immediate medical attention if any new or worsening signs or symptoms occur. Follow-up Provider: Mark Sky MD Provider: Shawn Bass MD Time spent 35 min copies to: Shawn Bass MD; Mark Sky MD, Mas[place] Dec 27, 2016 11:08
== END 2016-12-27 10:32 | disposition home or self-care (01) | DRG 312 ==
LOC: SED 01:57 → OBSVTOIN 04:31 → INTOOBSV 04:31 → MPC 04:31
PROVIDERS: ADMIT Internal Medicine; ATTEND Internal Medicine
DX: R55 Syncope and collapse (principal); I95.9 Hypotension, unspecified; I65.21 Occlusion and stenosis of right carotid artery; G89.29 Other chronic pain; I10 Essential (primary) hypertension; G40.909 Epilepsy, unspecified, not intractable, without status epilepticus; J30.9 Allergic rhinitis, unspecified; D63.8 Anemia in other chronic diseases classified elsewhere; T42.6X5A Adverse effect of other antiepileptic and sedative-hypnotic drugs, initial encounter; F12.90 Cannabis use, unspecified, uncomplicated